=== PATIENT | female | born 1965 | race Caucasian/White ===

== ENCOUNTER 2022-08-18 22:19 | Emergency (ER) | payer OTHER, SELFPAY ==
[2022-08-18 22:25] VITALS: BP 171/103; PULSE 88; RESP 18; TEMP 36.2; O2SAT 98
--- NOTE | 2022-08-18 22:58 | ED_ITS ---
HPI - Wound/Laceration General Chief Complaint: Laceration/Wound Stated Complaint: Laceration on hand, blood thinners Time Seen by Provider: 08/18/22 22:22 History of Present Illness HPI narrative: Pt presents with a 3.5 cm laceration on the thenar aspect of the right palm. The laceration is well approximated. It was obtained minutes ago while the patient was opening a can of peaches. Pt intended to stuff those peaches into a chicken that she was preparing. Pt is not up to date on her tdap. Pt has no neuromuscular findings. She has full functiono the hand without defects. The would is painful but was washed with water prior to coming in. Pt is on Plavix. Related Data Home Medications Medication Instructions Recorded Confirmed albuterol 90 mcg/actuation aerosol 2 spray inhalation PRN 03/03/22 03/03/22 inhaler aspirin 81 mg tablet,delayed mg PO DAILY 03/03/22 03/03/22 release atorvastatin 80 mg tablet mg PO .Bedtime 03/03/22 03/03/22 clopidogrel 75 mg tablet mg PO DAILY 03/03/22 03/03/22 diclofenac sodium 1 % topical gel 2 g topical QID 03/03/22 03/03/22 docusate sodium 100 mg capsule mg PO 03/03/22 03/03/22 fluticasone propionate 220 1 inhalation BID 03/03/22 03/03/22 mcg/actuation HFA aerosol inhaler fluticasone propionate 50 50 intranasal 03/03/22 03/03/22 mcg/actuation nasal spray,suspension loratadine 10 mg tablet 10 mg PO DAILY 03/03/22 03/03/22 metoprolol tartrate 25 mg tablet mg PO BID 03/03/22 03/03/22 nitroglycerin 0.4 mg sublingual 0.4 mg sublingual PRN 03/03/22 03/03/22 tablet sodium chloride 0.65 % nasal spray 0.65 intranasal 03/03/22 03/03/22 aerosol tizanidine 4 mg tablet 4 mg PO PRN 03/03/22 03/03/22 Allergies Allergy/AdvReac Type Severity Reaction Status Date / Time acetaminophen Allergy Unknown Verified 02/27/22 13:58 azithromycin Allergy Unknown Verified 02/27/22 13:58 buprenorphine Allergy Unknown Verified 02/27/22 13:58 codeine Allergy Unknown Verified 02/27/22 13:58 ibuprofen Allergy Unknown Stomach Verified 02/27/22 13:58 bleeding lamotrigine Allergy Unknown Throat Verified 02/27/22 13:58 problems methocarbamol Allergy Unknown Verified 02/27/22 13:58 naproxen Allergy Unknown Stomach Verified 02/27/22 13:58 problems Review of Systems Status of ROS: Reports: 10 or more systems reviewed and unremarkable except as noted in History and below PFSH PFS Medical History Anxiety Arthritis Asthma Back problem Bipolar 1 disorder Depression Eating disorder Encounter for pre-operative examination Encounter for screening GERD (gastroesophageal reflux disease) Heart attack History of renal calculi Hypertension IBS (irritable bowel syndrome) Kidney problem Skin problem Surgical History History of cholecystectomy History of hip replacement History of knee replacement History of lithotripsy Status post appendectomy Status post carpal tunnel release Status post vaginal hysterectomy Family History Paternal Grandfather Bleeding tendency Cancer Heart problem High blood pressure Stroke Chronic mental illness Maternal Grandmother Ovarian cancer Diabetes Heart problem Mother Ovarian cancer Diabetes Heart problem Stroke Chronic mental illness Father Chronic mental illness Social History Smoking Status: Current every day smoker What tobacco products do you use: cigarettes Do you use any of these nicotine containing products: None Second hand tobacco smoke exposure: No How often do you have a drink containing alcohol: never AUDIT-C Alcohol total score: 0 Non-prescribed substance use: denies use Exam Narrative: Exam Narrative: EXAM GENERAL: Patient appears comfortable and well. EYES: No scleral icterus. ENT: Tympanic membranes and oropharynx normal. THYROID: no thyroid nodules or thyromegaly. LYMPH: No supraclavicular or cervical lymphadenopathy. SKIN: Laceration on the palm as noted above. EXT: No dependent lower extremity pedal edema. HEART: Regular rate and rhythm with no murmurs, rubs, or gallops. LUNGS: Clear to auscultation bilaterally with no crackles or wheezes. ABD: Soft, non tender, non distended. PSYCH: Good eye contact, speech is not pressured. Const: Vital Signs, click to edit/add: Vital Signs - 24 hr 08/18/22 22:25 Temperature 97.2 F L Pulse Rate [Right] 88 Respiratory Rate 18 Blood Pressure [Ri ght Upper Arm] 171/103 H Pulse Oximetry 98 Oxygen Delivery Me thod Room Air Course Course Hospital Course: Wound was cleaned and then anesthetized with 1% Lidocaine. Pt wound closed with 5 running 3-0 Ethylon sutures. Vital Signs Vital signs: Initial Vital Signs Temperature 97.2 F L 08/18/22 22:25 Temperature Source Temporal Artery Scan 08/18/22 22:25 Pulse Rate 88 08/18/22 22:25 Pulse Rhythm 08/18/22 22:25 Pulse Strength 3+ Normal 08/18/22 22:25 Respiratory Rate 18 08/18/22 22:25 Blood Pressure 171/103 H 08/18/22 22:25 Blood Pressure Mean 125 08/18/22 22:25 Blood Pressure Position Sitting 08/18/22 22:25 Pulse Oximetry 98 08/18/22 22:25 Oxygen Delivery Method 08/18/22 22:25 Vital Signs Temperature 97.2 F L 08/18/22 22:25 Pulse Rate 88 08/18/22 22:25 Respiratory Rate 18 08/18/22 22:25 Blood Pressure 171/103 H 08/18/22 22:25 Pulse Oximetry 98 08/18/22 22:25 Oxygen Delivery Method 08/18/22 22:25 Temperature 97.2 F L 08/18/22 22:25 Pulse Rate 88 08/18/22 22:25 Respiratory Rate 18 08/18/22 22:25 Blood Pressure 171/103 H 08/18/22 22:25 Pulse Oximetry 98 08/18/22 22:25 Oxygen Delivery Method 08/18/22 22:25 MDM - Wound/Laceration MDM Narrative Medical decision making narrative: Pt presents with 3.5 cm laceration on the right palm. This was cleaned and closed as above. Wound care discussed. Sutures out in 9 days. Tdap updated. Differential Diagnosis Differential diagnosis: Likely laceration, abscess, abrasion and avulsion of skin Discharge Plan Discharge Clinical Impression: Laceration Patient Disposition: Home, Self-Care Condition: Stable Instructions: Laceration (ED) Additional Instructions: Sutures out in 9 days Activity Level: No Restrictions Discharge Diet: Regular Prescriptions: No Action diclofenac sodium 1 % gel 2 g topical QID metoprolol tartrate 25 mg tablet PO BID sodium chloride 0.65 % aerosol,spray 0.65 intranasal loratadine 10 mg tablet 10 mg PO DAILY fluticasone propionate 50 mcg/actuation spray,suspension 50 intranasal docusate sodium 100 mg capsule PO nitroglycerin 0.4 mg tablet, sublingual 0.4 mg sublingual PRN aspirin 81 mg tablet,delayed release (DR/EC) PO DAILY clopidogrel 75 mg tablet PO DAILY tizanidine 4 mg tablet 4 mg PO PRN atorvastatin 80 mg tablet PO .Bedtime fluticasone propionate 220 mcg/actuation HFA aerosol inhaler 1 inhalation BID albuterol 90 mcg/actuation aerosol 2 spray inhalation PRN Stand Alone Forms: [facility] Info Instructions
[2022-08-18] MEDS: TETANUS/DIPHTH/PERTUSSIS 0.5 ML SYRINGE IM (23:10)
== END 2022-08-18 23:33 | disposition home or self-care (01) ==
LOC: ED 23:14
PROVIDERS: Emergency Provider Internal Medicine
DX: S61.411A Laceration without foreign body of right hand, initial encounter (principal); W26.8XXA Contact with other sharp object(s), not elsewhere classified, initial encounter
CPT/HCPCS: 12002; 90471; 90715; 99283

== ENCOUNTER 2023-01-27 21:22 | Emergency (ER) | payer OTHER, SELFPAY ==
[2023-01-27 21:31] VITALS: BP 178/99; PULSE 84; RESP 24; TEMP 36.1; O2SAT 100
--- NOTE | 2023-01-27 21:53 | ED.GENADULT ---
HPI - General Adult General Chief complaint: Eye Problems Stated complaint: got bleach on her left eye Time Seen by Provider: 01/27/23 21:45 History of Present Illness HPI narrative: pt reports getting bleach in left eye, 2. 5 hours ago. pt reports flushing eye with water. Boyfriend reports using a ointment for her eye as well. Name/ brand is unknown. Pain increased after the ointment. 57-year-old woman presenting to the emergency department with complaint of left eye and right eye pain. Primarily left eye. About 3 hours ago was doing some cleaning using bleach and seems to indicate that she forgot herself and rubbed her left eye with her left hand. Subsequently has had a lot of burning. Partner arrived to find her crying in pain. She has spent some time washing her eyes; describes rinsing with 3 kamini cups ultimately when communicating more with me. They went to the pharmacy and got some lubricating eye ointment. This may be made it worse; burned more. I find her vaguely responsive. Reportedly has been hyperventilating probably having a panic attack. Related Data Home Medications Medication Instructions Recorded Confirmed albuterol 90 mcg/actuation aerosol 2 spray inhalation PRN 03/03/22 03/03/22 inhaler aspirin 81 mg tablet,delayed mg PO DAILY 03/03/22 03/03/22 release atorvastatin 80 mg tablet mg PO .Bedtime 03/03/22 03/03/22 clopidogrel 75 mg tablet mg PO DAILY 03/03/22 03/03/22 diclofenac sodium 1 % topical gel 2 g topical QID 03/03/22 03/03/22 docusate sodium 100 mg capsule mg PO 03/03/22 03/03/22 fluticasone propionate 220 1 inhalation BID 03/03/22 03/03/22 mcg/actuation HFA aerosol inhaler fluticasone propionate 50 50 intranasal 03/03/22 03/03/22 mcg/actuation nasal spray,suspension loratadine 10 mg tablet 10 mg PO DAILY 03/03/22 03/03/22 metoprolol tartrate 25 mg tablet mg PO BID 03/03/22 03/03/22 nitroglycerin 0.4 mg sublingual 0.4 mg sublingual PRN 03/03/22 03/03/22 tablet sodium chloride 0.65 % nasal spray 0.65 intranasal 03/03/22 03/03/22 aerosol tizanidine 4 mg tablet 4 mg PO PRN 03/03/22 03/03/22 Allergies Allergy/AdvReac Type Severity Reaction Status Date / Time acetaminophen Allergy Unknown Verified 02/27/22 13:58 azithromycin Allergy Unknown Verified 02/27/22 13:58 buprenorphine Allergy Unknown Verified 02/27/22 13:58 codeine Allergy Unknown Verified 02/27/22 13:58 ibuprofen Allergy Unknown Stomach Verified 02/27/22 13:58 bleeding lamotrigine Allergy Unknown Throat Verified 02/27/22 13:58 problems methocarbamol Allergy Unknown Verified 02/27/22 13:58 naproxen Allergy Unknown Stomach Verified 02/27/22 13:58 problems Review of Systems Status of ROS: Reports: 6 or more systems reviewed and unremarkable except as noted in History and below [facility] Medical History Bipolar 1 disorder ?F31.9 - Bipolar disorder, unspecified (ICD-10) Eating disorder ?F50.9 - Eating disorder, unspecified (ICD-10) Anxiety ?F41.9 - Anxiety disorder, unspecified (ICD-10) Depression ?F32.A - Depression, unspecified (ICD-10) Skin problem ?L98.9 - Disorder of the skin and subcutaneous tissue, unspecified (ICD-10) Arthritis ?M19.90 - Unspecified osteoarthritis, unspecified site (ICD-10) Back problem ?M53.9 - Dorsopathy, unspecified (ICD-10) Kidney problem ?N28.9 - Disorder of kidney and ureter, unspecified (ICD-10) GERD (gastroesophageal reflux disease) ?K21.9 - Gastro-esophageal reflux disease without esophagitis (ICD-10) IBS (irritable bowel syndrome) ?K58.9 - Irritable bowel syndrome without diarrhea (ICD-10) Heart attack ?I21.9 - Acute myocardial infarction, unspecified (ICD-10) Hypertension ?I10 - Essential (primary) hypertension (ICD-10) Asthma ?J45.909 - Unspecified asthma, uncomplicated (ICD-10) History of renal calculi ?Z87.442 - Personal history of urinary calculi (ICD-10) Encounter for screening ?Z13.9 - Encounter for screening, unspecified (ICD-10) Encounter for pre-operative examination ?Z01.818 - Encounter for other preprocedural examination (ICD-10) Surgical History History of knee replacement ?Z96.659 - Presence of unspecified artificial knee joint (ICD-10) History of hip replacement ?Z96.649 - Presence of unspecified artificial hip joint (ICD-10) History of cholecystectomy ?Z90.49 - Acquired absence of other specified parts of digestive tract (ICD-10) Status post vaginal hysterectomy ?Z90.710 - Acquired absence of both cervix and uterus (ICD-10) Status post carpal tunnel release ?Z98.890 - Other specified postprocedural states (ICD-10) Status post appendectomy ?Z90.49 - Acquired absence of other specified parts of digestive tract (ICD-10) History of lithotripsy ?Z98.890 - Other specified postprocedural states (ICD-10) Family History Paternal Grandfather Bleeding tendency Cancer Heart problem High blood pressure Stroke Chronic mental illness Maternal Grandmother Ovarian cancer Diabetes Heart problem Mother Ovarian cancer Diabetes Heart problem Stroke Chronic mental illness Father Chronic mental illness Social History Smoking Status: Current every day smoker What tobacco products do you use: cigarettes Do you use any of these nicotine containing products: None Second hand tobacco smoke exposure: No How often do you have a drink containing alcohol: never AUDIT-C Alcohol total score: 0 Non-prescribed substance use: denies use Exam Narrative: Exam Narrative: Clearly uncomfortable. Eyelid of left eye is faintly erythematous. I do not see marked swelling. Fullness also in the lower lid in particular. She is labored in her breathing. When partner tries to get her attention she startles awake. This happens repeatedly. She is able to be pushed to communicate regularly however. I did place tetracaine to allow for further examination. With repeated dosing over time seem to be causing more irritation or more collaboration on the degree of burning she was experiencing. Left eye with diffuse conjunctival injection. Edema. Pupils are equal 2 mm. Right eye also with some conjunctival injection but not as much as that on the left. I do not see obvious foreign body. Fluorescein dye staining does not reveal any discrete erosion though there is enhanced uptake around the periphery of the cornea both upper and lower. Const: Vital Signs, click to edit/add: Vital Signs - 24 hr 01/27/23 21:31 Temperature 97.0 F L Pulse Rate [Right Pulse Oximeter] 84 Respiratory Rate 24 Blood Pressure [Ri ght Upper Arm] 178/99 H Pulse Oximetry 100 Documenting provider has reviewed patient's vital signs: yes Course Vital Signs Vital signs: Initial Vital Signs Temperature 97.0 F L 01/27/23 21:31 Temperature Source Temporal Artery Scan 01/27/23 21:31 Pulse Rate 84 01/27/23 21:31 Pulse Rhythm Regular 01/27/23 21:31 Respiratory Rate 24 01/27/23 21:31 Blood Pressure 178/99 H 01/27/23 21:31 Blood Pressure Mean 125 H 01/27/23 21:31 Blood Pressure Position Semi-Fowlers 01/27/23 21:31 Pulse Oximetry 100 01/27/23 21:31 Vital Signs Temperature 97.0 F L 01/27/23 21:31 Pulse Rate 84 01/27/23 21:31 Respiratory Rate 24 01/27/23 21:31 Blood Pressure 178/99 H 01/27/23 21:31 Pulse Oximetry 100 01/27/23 21:31 Temperature 97.0 F L 01/27/23 21:31 Pulse Rate 84 01/27/23 21:31 Respiratory Rate 24 01/27/23 21:31 Blood Pressure 178/99 H 01/27/23 21:31 Pulse Oximetry 100 01/27/23 21:31 Medical Decision Making [facility] Narrative Medical decision making narrative: A place tetracaine eyedrops. This seems to help though it is difficult to a get a solid answer on this. I think still struggling with some anxiety exacerbation. When asked she would like an injection of anxiety. I have ordered for lorazepam. I hope to get a better evaluation after this. See physical exam. Did also contact poison Control. No further recommendations. I did also request test with pH strips of eye lacrimation. pH strip testing reported to be about an 8. I think unlikely to benefit from further irrigation. Place erythromycin ointment from stock. Tolerated this well. See patient discharge plan Medical Records Medical records reviewed: Yes I reviewed the patient's medical records Discharge Plan Discharge Clinical Impression: Chemical exposure of eye Patient Disposition: Home w/ Parent or Adult Condition: Improved Additional Instructions: Can take up to 800 mg of ibuprofen per dose. Take the erythromycin ointment applying little less than a cm ribbon 4 times daily over this next week. The last dose should be before bed. Be seen for marked swelling, redness around the eye. Also copious purulent drainage. Prescriptions: No Action diclofenac sodium 1 % gel 2 g topical QID metoprolol tartrate 25 mg tablet PO BID sodium chloride 0.65 % aerosol,spray 0.65 intranasal loratadine 10 mg tablet 10 mg PO DAILY fluticasone propionate 50 mcg/actuation spray,suspension 50 intranasal docusate sodium 100 mg capsule PO nitroglycerin 0.4 mg tablet, sublingual 0.4 mg sublingual PRN aspirin 81 mg tablet,delayed release (DR/EC) PO DAILY clopidogrel 75 mg tablet PO DAILY tizanidine 4 mg tablet 4 mg PO PRN atorvastatin 80 mg tablet PO .Bedtime fluticasone propionate 220 mcg/actuation HFA aerosol inhaler 1 inhalation BID albuterol 90 mcg/actuation aerosol 2 spray inhalation PRN Follow Up/Referrals: Provider,Not a Local [Primary Care Provider] - Stand Alone Forms: [facility] Info Instructions
[2023-01-27] MEDS: LORazepam 2 MG/ML inj 1 MG IM (22:03)
== END 2023-01-27 23:49 | disposition home or self-care (01) ==
PROVIDERS: Emergency Provider Family Medicine
DX: T26.92XA Corrosion of left eye and adnexa, part unspecified, initial encounter (principal); T26.91XA Corrosion of right eye and adnexa, part unspecified, initial encounter
CPT/HCPCS: 96372; 99283; 99284; A9270; J2060